=== PATIENT | female | born 1955 ===

== ENCOUNTER 2018-07-05 15:56 | Emergency (ER) | payer OTHER, MEDICARE ==
[2018-07-05 15:59] VITALS: BMI 23.9
[2018-07-05 16:07] VITALS: RESP 18
--- NOTE | 2018-07-05 17:00 | C.PDOC ---
History Of Present Illness 63 year old female presents to the ED for evaluation after she broke her tooth while eating peanuts earlier today. Patient reports pain to her right lower premolar. Patient states she is scheduled for a dental appointment after the weekend. Of note, patient takes pradaxa. She denies fever, chills. Time Seen by Provider: 07/05/18 16:20 Chief Complaint (Nursing): Dental Pain History Per: Patient History/Exam Limitations: no limitations Onset/Duration Of Symptoms: Hrs Current Symptoms Are (Timing): Still Present Quality: Positive for: "Pain" Additional History Per: Patient Past Medical History Reviewed: Historical Data, Nursing Documentation, Vital Signs Vital Signs: Last Vital Signs Temp 98.2 F 07/05/18 16:02 Pulse 92 H 07/05/18 16:02 Resp 18 07/05/18 16:02 BP 143/79 07/05/18 16:02 Pulse Ox 99 07/05/18 16:02 - Medical History PMH: Anxiety, Atrial Fibrillation, HTN, Hypercholesterolemia Comment Only: Alzheimer's Disease (x2 1993) Surgical History: No Surg Hx - [facility] Procedures OTHER SKIN & SUBQ I D (08/21/02) SURG TOOTH EXTRACT NEC (08/21/02) Family History: States: Unknown Family Hx - Social History Hx Alcohol Use: No Hx Substance Use: No - Immunization History Hx Tetanus Toxoid Vaccination: No Hx Influenza Vaccination: Yes Hx Pneumococcal Vaccination: No Review Of Systems Constitutional: Negative for: Fever, Chills ENT: Positive for: Mouth Pain (right lower premolar ) Physical Exam - Physical Exam Appears: Non-toxic, No Acute Distress Skin: Normal Color, Warm, Dry Head: Atraumatic, Normacephalic Eye(s): bilateral: Normal Inspection Oral Mucosa: Moist Teeth: Other (avulsed crown of right lower premolar, with root intact ) Extremity: Normal ROM Neurological/Psych: Normal Speech, Normal Cognition ED Course And Treatment O2 Sat by Pulse Oximetry: 99 (on RA) Pulse Ox Interpretation: Normal Progress Note: I removed the avulsed crown from the right lower premolar. Root is still in place. Patient declines pain medication at this time, stating she has medicine at home. Cleocin PO given. On reassessment, patient is resting comfortably, showing no signs of distress and is stable for discharge. Patient is advised to f/u with her dentist as scheduled or return to the ED if symptoms worsen. Disposition - Disposition Disposition: HOME/ ROUTINE Disposition Time: 16:58 Condition: STABLE Additional Instructions: Follow up with Dentist RIGOBERTO. Return to ED if feel worse. 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 - Scribe Statement The provider has reviewed the documentation as recorded by the Scribe (Mila Santana) All medical record entries made by the Scribe were at my direction and personally dictated by me. I have reviewed the chart and agree that the record accurately reflects my personal performance of the history, physical exam, medic al decision making, and the department course for this patient. I have also personally directed, reviewed, and agree with the discharge instructions and disposition.
[2018-07-05 17:08] VITALS: BP 133/55; PULSE 86; TEMP 98.4
[2018-07-05 18:26] VITALS: O2SAT 99
== END 2018-07-05 17:10 | disposition home or self-care (01) ==
LOC: C.ER 15:56
DX: S02.5XXA Fracture of tooth (traumatic), initial encounter for closed fracture (principal); X58.XXXA Exposure to other specified factors, initial encounter